=== PATIENT | male | born 1975 | race Caucasian/White ===

== ENCOUNTER 2020-04-15 16:31 | Inpatient (IN) | payer MEDICARE ==
[~2020-04-15] VITALS: Ht 180.3 cm; Wt 80.9 kg
[~2020-04-15 16:31] MED LIST: AUGMENTIN 875-1 EACH PO; FUROSEMIDE40 MG PO; HUMALOG100 UNIT/3 SC; LANTUS SOL100 UNIT/1 SQ; LOPRESSOR 25 MG25 MG PO; SODIUM BICARBO650 M1 PO; TRESIBA FL100 UNIT/1 SQ; VITAMIN D21250 MCG PO
[2020-04-15 22:50] LABS: RED BLOOD COUNT 2.39 M/UL (4.20-5.50); WHITE BLOOD COUNT 10.7 K/UL (4.5-11.0)
[2020-04-15 23:10] LABS: HEMOGLOBIN 6.8 gm/dl (14.0-17.5)
[2020-04-16] MEDS ORDERED: AMOX TR-K CLV1 EAC4 PO (02:15)
[2020-04-16] MEDS ORDERED: TRESIBA FL100 UNIT/1 SQ (02:20)
[2020-04-16 05:32] LABS: HEMOGLOBIN 8.1 gm/dl (14.0-17.5); RED BLOOD COUNT 2.75 M/UL (4.20-5.50); WHITE BLOOD COUNT 10.2 K/UL (4.5-11.0)
[2020-04-17 05:19] LABS: HEMOGLOBIN 7.8 gm/dl (14.0-17.5); RED BLOOD COUNT 2.65 M/UL (4.20-5.50); WHITE BLOOD COUNT 8.7 K/UL (4.5-11.0)
--- NOTE | 2020-04-17 08:29 | NUR ---
Spoke with JOYCE Rubalcava re: PICC line placement. Per conversation, Nephrology/Primary MD will need to clear pt for PICC placement secondary to GFR < 60.
[2020-04-18 05:40] LABS: HEMOGLOBIN 9.3 gm/dl (14.0-17.5); RED BLOOD COUNT 3.15 M/UL (4.20-5.50); WHITE BLOOD COUNT 7.8 K/UL (4.5-11.0)
[2020-04-19 04:46] LABS: HEMOGLOBIN 9.6 gm/dl (14.0-17.5); RED BLOOD COUNT 3.26 M/UL (4.20-5.50); WHITE BLOOD COUNT 6.8 K/UL (4.5-11.0)
[2020-04-20 05:24] LABS: HEMOGLOBIN 9.6 gm/dl (14.0-17.5); RED BLOOD COUNT 3.45 M/UL (4.20-5.50); WHITE BLOOD COUNT 8.5 K/UL (4.5-11.0)
[2020-04-21 08:37] LABS: HEMOGLOBIN 9.3 gm/dl (14.0-17.5); RED BLOOD COUNT 3.25 M/UL (4.20-5.50); WHITE BLOOD COUNT 8.7 K/UL (4.5-11.0)
[2020-04-22 06:31] LABS: HEMOGLOBIN 8.4 gm/dl (14.0-17.5); WHITE BLOOD COUNT 9.8 K/UL (4.5-11.0)
[2020-04-22 06:32] LABS: RED BLOOD COUNT 2.88 M/UL (4.20-5.50)
[2020-04-22 19:15] LABS: TOTAL PROTEIN, BODY FLUID 2.5 gm/dL
[2020-04-22 19:16] LABS: BODY FLUID SOURCE PLEURAL; RBC (AUTOMATED) 23900 10^6; WBC (AUTOMATED) 2213 10^3
[2020-04-23 06:09] LABS: HEMOGLOBIN 7.8 gm/dl (14.0-17.5); RED BLOOD COUNT 2.71 M/UL (4.20-5.50); WHITE BLOOD COUNT 9.9 K/UL (4.5-11.0)
[2020-04-24 05:34] LABS: HEMOGLOBIN 8.4 gm/dl (14.0-17.5); RED BLOOD COUNT 2.9 M/UL (4.20-5.50); WHITE BLOOD COUNT 11.8 K/UL (4.5-11.0)
[2020-04-25 04:35] LABS: HEMOGLOBIN 8.6 gm/dl (14.0-17.5); RED BLOOD COUNT 3.06 M/UL (4.20-5.50); WHITE BLOOD COUNT 10.3 K/UL (4.5-11.0)
[2020-04-26 05:56] LABS: HEMOGLOBIN 8.4 gm/dl (14.0-17.5); RED BLOOD COUNT 2.87 M/UL (4.20-5.50)
[2020-04-26 06:00] LABS: WHITE BLOOD COUNT 20.5 K/UL (4.5-11.0)
[2020-04-27 03:49] LABS: HEMOGLOBIN 6.9 gm/dl (14.0-17.5); RED BLOOD COUNT 2.39 M/UL (4.20-5.50); WHITE BLOOD COUNT 14.6 K/UL (4.5-11.0)
[2020-04-27 16:43] LABS: HEMOGLOBIN 8.2 gm/dl (14.0-17.5); WHITE BLOOD COUNT 15.7 K/UL (4.5-11.0)
[2020-04-27 16:47] LABS: RED BLOOD COUNT 2.78 M/UL (4.20-5.50)
--- NOTE | 2020-04-27 22:30 | NUR ---
EVANS CATHETER IS LEAKING. EVANS WAS REMOVED. ATTEMPTED TO REINSERT NEW EVANS CATH. WAS UNABLE TO ANCHOR DUE TO BLOCKAGE. RADHIKA LIMONRN CALLED. SHE ANCHORED COUDE CATHETER WITH DIFFICULTY NOTED. EVANS CATH DRAINING YELLOW URINE WITH SEDIMENT NOTED. PT TOLERATED PROCEDURE POORLY. STERILE TECHNIQUE WAS USED. CATHETER IS #16 FR.
[2020-04-28 03:42] LABS: HEMOGLOBIN 8.6 gm/dl (14.0-17.5); RED BLOOD COUNT 2.95 M/UL (4.20-5.50); WHITE BLOOD COUNT 16.7 K/UL (4.5-11.0)
[2020-04-29 11:29] LABS: HEMOGLOBIN 8.6 gm/dl (14.0-17.5); RED BLOOD COUNT 2.92 M/UL (4.20-5.50); WHITE BLOOD COUNT 17.1 K/UL (4.5-11.0)
--- NOTE | 2020-04-30 03:31 | NUR ---
PATIENT REFUSED LIQUID POTASSIUM, PILL POTASSIUM, AND IV POTASSIUM. PATIENT WAS TOLD THAT HE COULD HAVE A CRITICAL HEART RHYTHM THAT CAN KILL HIM. PATIENT STATED "I DON'T WANT IT." PATIENT IS ALERT AND ORIENTED X4. PATIENT WAS TOLD ABOUT THE RISKS OF HAVING A LOW POTASSIUM. PATIENT STATED "I DON'T CARE. I DON'T WANT IT."
[2020-04-30 03:59] LABS: HEMOGLOBIN 7.8 gm/dl (14.0-17.5); RED BLOOD COUNT 2.63 M/UL (4.20-5.50)
[2020-05-01 04:51] LABS: HEMOGLOBIN 7.5 gm/dl (14.0-17.5); RED BLOOD COUNT 2.53 M/UL (4.20-5.50); WHITE BLOOD COUNT 14.1 K/UL (4.5-11.0)
--- NOTE | 2020-05-01 17:20 | NUR ---
SWAB OBTAINED FOR COVID AND SENT TO LAB A/O
[2020-05-02 11:24] LABS: HEMOGLOBIN 7.6 gm/dl (14.0-17.5); RED BLOOD COUNT 2.56 M/UL (4.20-5.50)
[2020-05-02 11:44] LABS: WHITE BLOOD COUNT 18.1 K/UL (4.5-11.0)
[2020-05-02 12:03] LABS: BUN/CREATININE RATIO 18 (0-10)
[2020-05-02] MEDS ORDERED: ZYVOX600 MG PO (13:07)
[2020-05-02] MEDS ORDERED: SANTYL OINT 3030 GM TOP (13:07)
[2020-05-02] MEDS ORDERED: ZOSYN 3.373.375 GM/1 IV (13:07)
[2020-05-02] MEDS ORDERED: LOPRESSOR 25 MG25 MG PO (13:07)
[2020-05-02] MEDS ORDERED: ENOXAPARIN30 MG/0.3 SC (13:07)
[2020-05-03 03:57] LABS: BUN/CREATININE RATIO 20 (0-10)
[2020-05-03 09:52] LABS: HEMOGLOBIN 7.4 gm/dl (14.0-17.5); RED BLOOD COUNT 2.51 M/UL (4.20-5.50); WHITE BLOOD COUNT 15.6 K/UL (4.5-11.0)
[2020-05-03] MEDS ORDERED: FUROSEMIDE10 MG/1 M1 IVP (11:43)
== END 2020-05-03 13:30 | DRG 853 ==
LOC: PROG CARE 20:45 → CCU 20:45 → PROG CARE 04-26 17:12
PROVIDERS: Internal Medicine; Internal Medicine Infectious Disease; Internal Medicine Pulmonary Disease; ADMIT Internal Medicine
PROC: 30233N1 Transfusion of Nonautologous Red Blood Cells into Peripheral Vein, Percutaneous Approach (ICD-10-PCS; 2020-04-15)
PROC: 5A1955Z Respiratory Ventilation, Greater than 96 Consecutive Hours (ICD-10-PCS; 2020-04-15)
PROC: 0BH17EZ Insertion of Endotracheal Airway into Trachea, Via Natural or Artificial Opening (ICD-10-PCS; 2020-04-15)
PROC: 30233N1 Transfusion of Nonautologous Red Blood Cells into Peripheral Vein, Percutaneous Approach (ICD-10-PCS; 2020-04-17)
PROC: 0W9B3ZZ Drainage of Left Pleural Cavity, Percutaneous Approach (ICD-10-PCS; principal; 2020-04-22)
PROC: 0JB70ZZ Excision of Back Subcutaneous Tissue and Fascia, Open Approach (ICD-10-PCS; 2020-04-25)
PROC: 30233N1 Transfusion of Nonautologous Red Blood Cells into Peripheral Vein, Percutaneous Approach (ICD-10-PCS; 2020-04-27)
DX: A41.02 Sepsis due to Methicillin resistant Staphylococcus aureus (principal); E10.11 Type 1 diabetes mellitus with ketoacidosis with coma; J96.01 Acute respiratory failure with hypoxia; R65.21 Severe sepsis with septic shock; E43 Unspecified severe protein-calorie malnutrition; I50.33 Acute on chronic diastolic (congestive) heart failure; G93.41 Metabolic encephalopathy; N17.9 Acute kidney failure, unspecified; D62 Acute posthemorrhagic anemia; I13.0 Hypertensive heart and chronic kidney disease with heart failure and stage 1 through stage 4 chronic kidney disease, or unspecified chronic kidney disease; E87.0 Hyperosmolality and hypernatremia; Z99.11 Dependence on respirator [ventilator] status; F19.239 Other psychoactive substance dependence with withdrawal, unspecified; Z78.1 Physical restraint status; Z20.828 Contact with and (suspected) exposure to other viral communicable diseases; A41.51 Sepsis due to Escherichia coli [E. coli]; J44.9 Chronic obstructive pulmonary disease, unspecified; I10 Essential (primary) hypertension; E78.5 Hyperlipidemia, unspecified; Z91.19 Patient's noncompliance with other medical treatment and regimen; F17.210 Nicotine dependence, cigarettes, uncomplicated; I11.0 Hypertensive heart disease with heart failure; N18.9 Chronic kidney disease, unspecified; D53.9 Nutritional anemia, unspecified; E87.6 Hypokalemia; E88.09 Other disorders of plasma-protein metabolism, not elsewhere classified; L89.150 Pressure ulcer of sacral region, unstageable; Z79.4 Long term (current) use of insulin; E86.1 Hypovolemia
CPT/HCPCS: 31500; 36415; 36430; 36600; 71045; 74018; 80048; 80053; 80076; 80202; 80307; 81001; 82040; 82270; 82550; 82553; 82803; 82962; 83615; 83735; 83880; 84132; 84155; 84157; 84484; 85025; 85027; 85610; 85730; 86140; 86850; 86900; 86901; 86920; 87040; 87070; 87077; 87186; 87205; 89051; 93005; 94002; 94003; 94660; 94760; 97161; 97530-GP-CQ; A4340; A6212; C1729; C9113; J0690; J1205; J1335; J1630; J1644; J1650; J1940; J2060; J2250; J2543; J2704; J3010; J3370; J3480; J7030; J7040; J7050; J7070; J7120; P9016; P9047; U0002